=== PATIENT | male | born 1985 | race Caucasian/White ===

== ENCOUNTER 2020-02-18 08:32 | Emergency (ER) | payer BC, SELFPAY ==
[2020-02-18 08:38] VITALS: BP 141/97; PULSE 80; RESP 16; TEMP 36.6; O2SAT 99
--- NOTE | 2020-02-18 08:54 | ED.BACK ---
HPI - Back Pain/Injury General Chief Complaint: Back Pain/Injury Stated Complaint: back pain Time Seen by Provider: 02/18/20 08:42 Source: patient and RN notes reviewed Mode of arrival: ambulatory Limitations: no limitations History of Present Illness HPI Narrative: Patient presents today complaining of low back pain that started 2 days ago. Pain was present when he woke up. Denies any injury, trauma, heavy lifting or twisting. Denies numbness or tingling in the extremities. Denies radiation of the pain. Denies any loss of bowel or bladder control. At rest, patient currently rates pain 2/10, which increases to 6/10 with movement. He has been using bare, ice, and icy hot without relief. MD elicited complaint: back pain Related Data Allergies Allergy/AdvReac Type Severity Reaction Status Date / Time No Known Allergies Allergy Verified 02/18/20 08:41 Review of Systems Review of Systems: Narrative: CONSTITUTIONAL: Denies body aches, fever, chills, or sweats. EYES: Denies visual changes, redness, or discharge. ENT: Denies rhinorrhea, congestion, sore throat, or otalgia. CARDIOVASCULAR: Denies chest pain, palpitations, or edema. RESPIRATORY: Denies cough or dyspnea. GASTROINTESTINAL: Denies abdominal pain, nausea, vomiting, or diarrhea. GENITOURINARY: Denies dysuria or hematuria. SKIN: Denies rash, itching, or wounds. MUSCULOSKELETAL: Denies joint pain, or myalgia. + Back pain NEUROLOGIC: Denies headache, numbness, tingling, or weakness. PSYCH: Denies depression or anxiety. PMFSH Comments At time of signature, I have reviewed and agree with nursing past medical, surgical, social and family history unless otherwise noted. Please see nursing chart for further information. There is no relevant family history pertinent to the presenting complaint Exam Narrative: Exam Narrative: GENERAL: Well-appearing, well-nourished, and in no acute distress. HEAD: Normocephalic, atraumatic. EYES: EOMI. No redness or drainage. ENT: Mucous membranes pink and moist. NECK: Normal AROM. CHEST: No respiratory distress. MUSCULOSKELETAL: No bony tenderness of the spine or lumbar paraspinal muscles. Patient localizes pain in midline lower lumbar and bilateral lower lumbar paraspinal muscles. Distal sensation intact. Saddle sensation intact. Capillary refill normal. Patellar reflexes normal. Foot push and pulls equal and strong. EXTREMITIES: Normal range of motion. No edema. SKIN: Warm, dry, no rash. Capillary refill normal. Normal skin turgor. NEURO: No focal deficits. Alert and oriented x3. Gait steady. PSYCH: Normal affect. No signs of depression or anxiety. Course Vital Signs Vital signs: Vital Signs Temperature 97.8 F 02/18/20 08:38 Pulse Rate 80 02/18/20 08:38 Respiratory Rate 16 02/18/20 08:38 Blood Pressure 141/97 H 02/18/20 08:38 Pulse Oximetry 99 02/18/20 08:38 Temperature 97.8 F 02/18/20 08:38 Pulse Rate 80 02/18/20 08:38 Respiratory Rate 16 02/18/20 08:38 Blood Pressure 141/97 H 02/18/20 08:38 Pulse Oximetry 99 02/18/20 08:38 Reviewed. Pt has been instructed to follow up with his PCP regarding his elevated blood pressure today. MDM - Back Pain/Injury Differential Diagnosis Differential diagnosis: Likely lumbar radiculopathy, sciatica and strain of lumbar region Critical Care Time Critical Care Time Critical Care Time: No Discharge Plan Discharge Clinical Impression: Low back pain Qualifiers: Chronicity: acute Back pain laterality: bilateral Sciatica presence: without sciatica Qualified Code(s): M54.5 - Low back pain Patient Disposition: Home, Self-Care Condition: Stable Instructions: Acute Low Back Pain (ED) Additional Instructions: Please purchase an anti-inflammatory such as Aleve or ibuprofen and take as directed. You have been given 2 prescriptions. Please take the Flexeril as prescribed. Do not drive within 8 hours of taking the Flexeril as it can make
== END 2020-02-18 09:02 | disposition home or self-care (01) ==
PROVIDERS: Emergency Provider Nurse Practitioner
DX: M54.5 Low back pain (principal)
CPT/HCPCS: 99213; G0463